=== PATIENT | male | born 1930 | race Caucasian/White ===

== ENCOUNTER 2016-10-29 16:11 | Outpatient (CLI) | payer MEDICARE, BC ==
[2016-04-25 13:39] VITALS: BP 163/82
== END 2016-10-29 16:12 ==
LOC: LABRHC 16:11
PROVIDERS: ATTEND Family Medicine
DX: L82.1 Other seborrheic keratosis (principal)

== ENCOUNTER 2017-05-15 08:24 | Outpatient (CLI) | payer MEDICARE, BC ==
[2016-04-25 13:39] VITALS: BP 163/82
[2017-05-15 09:08] LABS: eGFR (African) > 60; eGFR (Non-African) > 60
== END 2017-05-15 08:25 ==
LOC: LAB 08:24
PROVIDERS: ATTEND Family Medicine
DX: E11.9 Type 2 diabetes mellitus without complications (principal); I10 Essential (primary) hypertension
CPT/HCPCS: 36415; 80053; 80061; 83036